=== PATIENT | male | born 1965 | race Hispanic/Latino ===

== ENCOUNTER 2017-09-15 10:19 | Emergency (ER) | payer OTHER ==
--- NOTE | 2017-09-15 13:21 | Emergency Department Report ---
Chief Complaint: Nausea/Vomiting/Diarrhea Stated Complaint: NAUSEA/VOMITING - HPI History of Present Illness: 52-year-old male with the greater than 20 year addiction to drugs comes in today stating that he would like to get help to get off taking methadone. Patient reports that he last used meth last night. Patient reports it is a severe headache and some nausea and some vomiting. He reports that he has some mild blurry vision. - Exam Vital Signs: Vital Signs 09/15/17 11:48 Temperature 97.6 F Pulse Rate 84 Blood Pressure 122/60 O2 Sat by Pulse 100 Oximetry Physical Exam: Patient's alert and oriented no acute distress. Slouched in the chair on and off sleepiness. Cardiovascular. Regular rate and rhythm Lungs clear to auscultation bilateral Abdomen soft nontender nondistended MSE screening note: Focused history and physical exam performed. Due to findings the following was ordered: Discussed with patient that we would send him over to the main ER to see if we can get him some help getting off meth. Patient verbalized understanding and very appreciative. ED Disposition for MSE Condition: Stable
[2017-09-15 16:43] LABS: Basophils # (Auto) 0.1 K/mm3 (0.0-0.1); Basophils % (Auto) 0.9 % (0.0-1.8); Eosinophils # (Auto) 0.4 K/mm3 (0.0-0.4); Eosinophils % (Auto) 6.3 % (0.0-4.3); Hematocrit 42.5 % (35.5-45.6); Hemoglobin 14.5 gm/dl (11.8-15.2); Lymphocytes # (Auto) 1.3 K/mm3 (1.2-5.4); Lymphocytes % (Auto) 22.7 % (13.4-35.0); Mean Corpuscular HGB Conc 34 % (32-34); Mean Corpuscular Hemoglobin 33 pg (28-32); Mean Corpuscular Volume 96 fl (84-94); Monocytes # (Auto) 0.6 K/mm3 (0.0-0.8); Platelet Count 196 K/mm3 (140-440); Red Blood Count 4.43 M/mm3 (3.65-5.03); Red Cell Distribution Width 14.4 % (13.2-15.2)
[2017-09-15 16:50] LABS: Bilirubin,Urine NEG (Negative); Blood,Urine SM (Negative); Color,Urine Yellow (Yellow); Mucus,Urine FEW /HPF; Protein,Urine <15 mg/dL mg/dL (Negative); Urobilinogen,Urine < 2.0 mg/dL (<2.0)
[2017-09-15 16:53] LABS: BUN/Creatinine Ratio 32; Blood Urea Nitrogen 16 mg/dL (9-20); Calcium 8.8 mg/dL (8.4-10.2); Hemolysis Index 7
[2017-09-15 16:58] LABS: Benzodiazepines Screen,Urine PRESUMPTIVE NEGATIVE; Cocaine Screen,Urine PRESUMPTIVE NEGATIVE; Methadone Screen,Urine PRESUMPTIVE NEGATIVE; Opiate Screen,Urine PRESUMPTIVE NEGATIVE
[2017-09-15] MEDS ORDERED: TYLENOL PO ONE (17:06)
[2017-09-15 17:15] LABS: Amphetamine Screen,Urine PRESUMPTIVE POSITIVE; Cannabinoid Screen,Urine PRESUMPTIVE POSITIVE
--- NOTE | 2017-09-15 18:07 | Cat Scan Report ---
FINAL REPORT EXAM: CT HEAD/BRAIN WO CON HISTORY: headache TECHNIQUE: Standard unenhanced CT of the head at 5.0 millimeter axial increments. PRIORS: None. FINDINGS: The ventricular system is normal in size and configuration. There is no evidence for parenchymal volume loss. There is no evidence for mass lesion, mass effect, midline shift, acute intracranial hemorrhage, or acute ischemia/ infarction. No evidence for acute skull fracture is seen. No abnormality in the overlying scalp soft tissues is seen. Visualized paranasal sinuses demonstrate extensive mucosal thickening throughout the bilateral ethmoid, frontal, and maxillary sinuses without air-fluid levels. IMPRESSION: Mild chronic sinusitis. No acute intracranial process noted.
--- NOTE | 2017-09-15 18:17 | Emergency Department Report ---
ED Psych HPI - General Chief Complaint: Nausea/Vomiting/Diarrhea Stated Complaint: NAUSEA/VOMITING Time Seen by Provider: 09/15/17 16:25 Source: patient Mode of arrival: Ambulatory Limitations: No Limitations - History of Present Illness Initial Comments: 52-year-old male with past medical history of drug abuse presents to the Hospital complaining of suicidal ideation, methamphetamine abuse, and headache. Patient states he wants help to stop his methadone addiction. He either snorts or smokes meth and denies IV injection. Patient last used meth last night. Complains of a headache, nausea, vomiting, blurred vision. Headache was initially severe. He states it has decreased in intensity and has blurred vision has improved. Patient states he was suicidal. Previous suicidal attempts in the past including overdoses. Patient also states he drinks alcohol but not daily and smokes marijuana - Related Data Home Medications Medication Instructions Recorded Confirmed Last Taken No Known Home Medications [No 02/28/14 09/15/17 Unknown Reported Home Medications] Allergies Allergy/AdvReac Type Severity Reaction Status Date / Time No Known Allergies Allergy Unverified 07/07/13 10:58 ED Review of Systems ROS: Stated complaint: NAUSEA/VOMITING Other details as noted in HPI Comment: All other systems reviewed and negative ED Past Medical Hx - Past Medical History Previous Medical History?: No - Surgical History Additional Surgical History: L lung-bleb - Social History Smoking Status: Current Every Day Smoker - Medications Home Medications: Home Medications Medication Instructions Recorded Confirmed Last Taken Type No Known Home Medications [No 02/28/14 09/15/17 Unknown History Reported Home Medications] ED Physical Exam - General Limitations: No Limitations - Other Other exam information: General: No limitations, patient is alert in no acute distress Head exam: Atraumatic, normocephalic Eyes exam: Normal appearance, pupils equal reactive to light, extraocular movements intact ENT: Moist mucous membrane Neck exam: Normal inspection, full range of motion, no meningismus nontender Respiratory exam: Clear to auscultation bilateral, no wheezes, rales, crackles Cardiovascular: Normal rate and rhythm, normal heart sounds Abdomen: Soft, nondistended, and nontender, with normal bowel sounds, no rebound, or guarding Extremity: Full range of motion normal inspection no deformity Back: Normal Inspection, full range of motion, no tenderness Neurologic: Alert, oriented x3, cranial nerves intact, no motor or sensory deficit Psychiatric: normal affect, normal mood Skin: Warm, dry, intact ED Course Vital Signs 09/15/17 09/15/17 09/15/17 11:48 14:52 15:05 Temperature 97.6 F 97.5 F L Pulse Rate 84 77 Respiratory 20 20 Rate Blood Pressure 122/60 Blood Pressure 115/78 [Right] O2 Sat by Pulse 100 98 98 Oximetry 09/15/17 20:10 Temperature 98.8 F Pulse Rate 78 Respiratory 18 Rate Blood Pressure Blood Pressure 109/62 [Right] O2 Sat by Pulse 99 Oximetry ED Medical Decision Making - Lab Data Result diagrams: 09/15/17 16:33 09/15/17 16:33 Lab Results 09/15/17 09/15/17 09/15/17 Range/Units 16:08 16:23 16:23 WBC (4.5-11.0) K/mm3 RBC (3.65-5.03) M/mm3 Hgb (11.8-15.2) gm/dl Hct (35.5-45.6) % MCV (84-94) fl MCH (28-32) pg MCHC (32-34) % RDW (13.2-15.2) % Plt Count (140-440) K/mm3 Lymph % (Auto) (13.4-35.0) % [place] % (Auto) (0.0-7.3) % Eos % (Auto) (0.0-4.3) % Baso % (Auto) (0.0-1.8) % Lymph # (1.2-5.4) K/mm3 [place] # (0.0-0.8) K/mm3 Eos # (0.0-0.4) K/mm3 Baso # (0.0-0.1) K/mm3 Seg Neutrophils % (40.0-70.0) % Seg Neutrophils # (1.8-7.7) K/mm3 Sodium (137-145) mmol/L Potassium (3.6-5.0) mmol/L Chloride (98-107) mmol/L Carbon Dioxide (22-30) mmol/L Anion Gap mmol/L BUN (9-20) mg/dL Creatinine (0.8-1.5) mg/dL Estimated GFR ml/min BUN/Creatinine Ratio % Glucose (75-100) mg/dL POC Glucose 161 H (70-105) Calcium (8.4-10.2) mg/dL Total Creatine Kinase (55-170) units/L Urine Color Yellow (Yellow) Urine Turbidity Clear (Clear) Urine pH 5.0 (5.0-7.0) Ur Specific [place] 1.020 (1.003-1.030) Urine Protein <15 mg/dl (Negative) mg/dL Urine Glucose (UA) Neg (Negative) mg/dL Urine Ketones 20 (Negative) mg/dL Urine Blood Sm (Negative) Urine Nitrite Neg (Negative) Urine Bilirubin Neg (Negative) Urine Urobilinogen < 2.0 (<2.0) mg/dL Ur Leukocyte Esterase Neg (Negative) Urine WBC (Auto) 2.0 (0.0-6.0) /HPF Urine RBC (Auto) 2.0 (0.0-6.0) /HPF Urine Mucus Few /HPF Salicylates (2.8-20.0) mg/dL Urine Opiates Screen Presumptive negative Urine Methadone Screen Presumptive negative Acetaminophen (10.0-30.0) ug/mL Ur Barbiturates Screen Presumptive negative Ur Phencyclidine Scrn Presumptive negative Ur Amphetamines Screen Presumptive positive U Benzodiazepines Scrn Presumptive negative Urine Cocaine Screen Presumptive negative U Marijuana (THC) Screen Presumptive positive Drugs of Abuse Note Disclamer Plasma/Serum Alcohol (0-0.07) % 09/15/17 09/15/17 09/15/17 Range/Units 16:33 16:33 16:33 WBC (4.5-11.0) K/mm3 RBC (3.65-5.03) M/mm3 Hgb (11.8-15.2) gm/dl Hct (35.5-45.6) % MCV (84-94) fl MCH (28-32) pg MCHC (32-34) % RDW (13.2-15.2) % Plt Count (140-440) K/mm3 Lymph % (Auto) (13.4-35.0) % [place] % (Auto) (0.0-7.3) % Eos % (Auto) (0.0-4.3) % Baso % (Auto) (0.0-1.8) % Lymph # (1.2-5.4) K/mm3 [place] # (0.0-0.8) K/mm3 Eos # (0.0-0.4) K/mm3 Baso # (0.0-0.1) K/mm3 Seg Neutrophils % (40.0-70.0) % Seg Neutrophils # (1.8-7.7) K/mm3 Sodium 135 L (137-145) mmol/L Potassium 4.1 (3.6-5.0) mmol/L Chloride 97.4 L (98-107) mmol/L Carbon Dioxide 27 (22-30) mmol/L Anion Gap 15 mmol/L BUN 16 (9-20) mg/dL Creatinine 0.5 L (0.8-1.5) mg/dL Estimated GFR > 60 ml/min BUN/Creatinine Ratio 32 % Glucose 169 H (75-100) mg/dL POC Glucose (70-105) Calcium 8.8 (8.4-10.2) mg/dL Total Creatine Kinase (55-170) units/L Urine Color (Yellow) Urine Turbidity (Clear) Urine pH (5.0-7.0) Ur Specific [place] (1.003-1.030) Urine Protein (Negative) mg/dL Urine Glucose (UA) (Negative) mg/dL Urine Ketones (Negative) mg/dL Urine Blood (Negative) Urine Nitrite (Negative) Urine Bilirubin (Negative) Urine Urobilinogen (<2.0) mg/dL Ur Leukocyte Esterase (Negative) Urine WBC (Auto) (0.0-6.0) /HPF Urine RBC (Auto) (0.0-6.0) /HPF Urine Mucus /HPF Salicylates < 0.3 L (2.8-20.0) mg/dL Urine Opiates Screen Urine Methadone Screen Acetaminophen < 15.0 (10.0-30.0) ug/mL Ur Barbiturates Screen Ur Phencyclidine Scrn Ur Amphetamines Screen U Benzodiazepines Scrn Urine Cocaine Screen U Marijuana (THC) Screen Drugs of Abuse Note Plasma/Serum Alcohol (0-0.07) % 09/15/17 09/15/17 09/15/17 Range/Units 16:33 16:33 16:33 WBC 5.8 (4.5-11.0) K/mm3 RBC 4.43 (3.65-5.03) M/mm3 Hgb 14.5 (11.8-15.2) gm/dl Hct 42.5 (35.5-45.6) % MCV 96 H (84-94) fl MCH 33 H (28-32) pg MCHC 34 (32-34) % RDW 14.4 (13.2-15.2) % Plt Count 196 (140-440) K/mm3 Lymph % (Auto) 22.7 (13.4-35.0) % [place] % (Auto) 10.0 H (0.0-7.3) % Eos % (Auto) 6.3 H (0.0-4.3) % Baso % (Auto) 0.9 (0.0-1.8) % Lymph # 1.3 (1.2-5.4) K/mm3 [place] # 0.6 (0.0-0.8) K/mm3 Eos # 0.4 (0.0-0.4) K/mm3 Baso # 0.1 (0.0-0.1) K/mm3 Seg Neutrophils % 60.1 (40.0-70.0) % Seg Neutrophils # 3.5 (1.8-7.7) K/mm3 Sodium (137-145) mmol/L Potassium (3.6-5.0) mmol/L Chloride (98-107) mmol/L Carbon Dioxide (22-30) mmol/L Anion Gap mmol/L BUN (9-20) mg/dL Creatinine (0.8-1.5) mg/dL Estimated GFR ml/min BUN/Creatinine Ratio % Glucose (75-100) mg/dL POC Glucose (70-105) Calcium (8.4-10.2) mg/dL Total Creatine Kinase 236 H (55-170) units/L Urine Color (Yellow) Urine Turbidity (Clear) Urine pH (5.0-7.0) Ur Specific [place] (1.003-1.030) Urine Protein (Negative) mg/dL Urine Glucose (UA) (Negative) mg/dL Urine Ketones (Negative) mg/dL Urine Blood (Negative) Urine Nitrite (Negative) Urine Bilirubin (Negative) Urine Urobilinogen (<2.0) mg/dL Ur Leukocyte Esterase (Negative) Urine WBC (Auto) (0.0-6.0) /HPF Urine RBC (Auto) (0.0-6.0) /HPF Urine Mucus /HPF Salicylates (2.8-20.0) mg/dL Urine Opiates Screen Urine Methadone Screen Acetaminophen (10.0-30.0) ug/mL Ur Barbiturates Screen Ur Phencyclidine Scrn Ur Amphetamines Screen U Benzodiazepines Scrn Urine Cocaine Screen U Marijuana (THC) Screen Drugs of Abuse Note Plasma/Serum Alcohol < 0.01 (0-0.07) % - Radiology Data Radiology results: report reviewed Read by radiologist CT head: Mild chronic sinusitis - Medical Decision Making 1013 and transfer form have been signed. pt is medically cleared for psychiatric admission and transfer - Differential Diagnosis drug abuse, headache, ICH Critical Care Time: No Critical care attestation.: If time is entered above; I have spent that time in minutes in the direct care of this critically ill patient, excluding procedure time. ED Disposition Clinical Impression: Methamphetamine abuse, Suicidal ideation, Medical clearance for psychiatric admission, Chronic sinusitis Disposition: [id number]/TX-[id number] PSY HOSP/PSY UNIT Is pt being admited?: No Does the pt Need Aspirin: No Condition: Stable Time of Disposition: 18:17 (awaiting acceptance)
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
[2017-09-16] MEDS: RisperDAL PO SCH (23:30)
--- NOTE | 2017-09-17 10:53 | Progress Note ---
Subjective - Reason for Consult Consult date: 09/17/17 Reason for consult: Psychiatry Follow-up - Chief Complaint Chief complaint: "I need help" 52 year old WM presents to [facility] to detox from "meth". Today the patient is cooperative during the assessment. He is adamant that all his issues "stem" from a bad relationship with his girlfriend. He could not explain what happened at home, other than stating, "I need to stop using meth." He was pacing throughout the interview and acknowledged hearing voices "sometimes," but deny them now. He would not confirm or deny feeling scared when asked. He denies SI/HI's and AVH's. He denies any side effects of his medications. He stated that he takes Risperdal and Cogentin. Mental Status Exam - Vital signs Last Vital Signs Temp 98.7 F 09/16/17 23:32 Pulse 89 09/16/17 23:32 Resp 17 09/16/17 23:32 BP 106/69 09/16/17 23:32 Pulse Ox 99 09/16/17 23:32 - Exam Narrative exam: MSE: Appearance: cooperative Behavior: regular eye contact Speech: regular rate and tone Mood: irritable Affect: congruent to mood Thought Process: circumstantial Thought Content: denies SI/HI's and AVH's, disorganized, paranoia Motor Activity: sitting up in bed Cognition: A/O x3 Insight: poor Judgment: variable Assessment and Plan Impression: Unspecified Psychosis. Substance Use DO (amphetamines). Today the patient is cooperative during the assessment. DDx: R/O Schizophrenia, R/O Substance Induced Psychosis Recommendation/Plan: Continue 1013 with placement to inpatient psy services. Continue Risperdal 1 mg PO HS for psychosis and start Cogentin 0.5 mg PO HS for EPS prevention (home medication). Discussed possible metabolic side effects of Risperdal with patient.
[2017-09-17] MEDS ORDERED: COGENTIN PO SCH (22:00)
[2017-09-17] MEDS: RisperDAL PO SCH (22:03)
[2017-09-18] MEDS ORDERED: TYLENOL ONE (06:12)
[2017-09-18] MEDS ORDERED: TYLENOL PO ONE (06:15)
--- NOTE | 2017-09-18 09:46 | Progress Note ---
Subjective - Reason for Consult Consult date: 09/18/17 Reason for consult: Psychiatry Follow-up - Chief Complaint Chief complaint: "I just want to stop using meth" 52 year old WM presents to [facility] to detox from "meth". Today the patient is calm and cooperative during the assessment. He is adamant that he will do his best to stop using "meth." He denies paranoia, SI/HI's, and AVH's. This is the patient's first day denying paranoia. He denies any side effects of his medications. He stated being homeless at this time. Mental Status Exam - Vital signs Last Vital Signs Temp 98.6 F 09/17/17 11:00 Pulse 72 09/17/17 11:00 Resp 18 09/18/17 06:18 BP 96/64 09/17/17 11:00 Pulse Ox 100 09/17/17 11:00 - Exam Narrative exam: MSE: Appearance: calm, cooperative Behavior: regular eye contact Speech: regular rate and tone Mood: "better" Affect: congruent to mood Thought Process: circumstantial Thought Content: denies SI/HI's and AVH's Motor Activity: sitting up in bed Cognition: A/O x3 Insight: fair Judgment: fair Assessment and Plan Impression: Unspecified Psychosis. Substance Use DO (amphetamines). Today the patient is cooperative during the assessment. DDx: R/O Schizophrenia, R/O Substance Induced Psychosis Recommendation/Plan: Evaluate 1013 in 24 hours to determine proper dispo. Continue Risperdal 1 mg PO HS for psychosis and start Cogentin 0.5 mg PO HS for EPS prevention (home medication). Discussed possible metabolic side effects of Risperdal with patient. Student Services Rep involvement when discharged, the patient is homeless.
[2017-09-18 20:37] VITALS: BP 107/69
== END 2017-09-18 20:40 ==
LOC: EEVIPCON 10:19 → ED 10:19
DX: F29 Unspecified psychosis not due to a substance or known physiological condition (principal); F15.10 Other stimulant abuse, uncomplicated; J32.9 Chronic sinusitis, unspecified; F12.10 Cannabis abuse, uncomplicated; F17.200 Nicotine dependence, unspecified, uncomplicated; Z79.899 Other long term (current) drug therapy
CPT/HCPCS: 36415; 70450; 80048; 80307; 81001; 82550; 82962; 85025; 99285; G0480; 80320

== ENCOUNTER 2018-10-31 17:12 | Emergency (ER) | payer OTHER ==
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
[2018-10-31] MEDS ORDERED: BOOSTRIX IM ONE (17:32)
[2018-10-31] MEDS ORDERED: NACL 0.9% IR ONE ×3 (18:17→19:35)
[2018-10-31] MEDS ORDERED: NACL 0.9% 500 ML IR ONE (18:18)
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
[2018-10-31 18:36] LABS: Hematocrit 39.4 % (35.5-45.6); Hemoglobin 13.4 gm/dl (11.8-15.2); Mean Corpuscular HGB Conc 34 % (32-34); Mean Corpuscular Volume 95 fl (84-94); Platelet Count 273 K/mm3 (140-440); Red Blood Count 4.17 M/mm3 (3.65-5.03); Red Cell Distribution Width 13.8 % (13.2-15.2)
[2018-10-31 18:44] LABS: Basophils # (Auto) 0.1 K/mm3 (0.0-0.1); Eosinophils # (Auto) 0.6 K/mm3 (0.0-0.4); Eosinophils % (Auto) 8.8 % (0.0-4.3); Lymphocytes # (Auto) 1.8 K/mm3 (1.2-5.4); Lymphocytes % (Auto) 25.3 % (13.4-35.0); Monocytes # (Auto) 0.8 K/mm3 (0.0-0.8); Monocytes % (Auto) 11.5 % (0.0-7.3)
[2018-10-31] MEDS ORDERED: DILAUDID IM ONE (18:47)
[2018-10-31] MEDS ORDERED: ZOFRAN ODT PO ONE (18:47)
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
[2018-10-31] MEDS ORDERED: XYLOCAINE 1%/ EPI 1:100,000 INFILTRATI NR (19:00)
[2018-10-31 19:01] LABS: Alanine Aminotransferase 11 units/L (7-56); Albumin 3.3 g/dL (3.9-5); BUN/Creatinine Ratio 22; Blood Urea Nitrogen 13 mg/dL (9-20); Calcium 8.1 mg/dL (8.4-10.2); Hemolysis Index 9
[2018-10-31] MEDS ORDERED: KEFLEX PO ONE (19:35)
[2018-10-31 21:17] LABS: Bilirubin,Urine NEG (Negative); Blood,Urine NEG (Negative); Color,Urine Yellow (Yellow); Mucus,Urine FEW /HPF; Protein,Urine <15 mg/dL mg/dL (Negative)
[2018-10-31 21:26] LABS: Benzodiazepines Screen,Urine PRESUMPTIVE NEGATIVE; Cocaine Screen,Urine PRESUMPTIVE NEGATIVE; Methadone Screen,Urine PRESUMPTIVE NEGATIVE; Opiate Screen,Urine PRESUMPTIVE NEGATIVE
[2018-10-31 21:42] LABS: Amphetamine Screen,Urine PRESUMPTIVE POSITIVE; Cannabinoid Screen,Urine PRESUMPTIVE POSITIVE
[2018-11-01] MEDS: KEFLEX PO SCH ×3 (02:59→15:00)
[2018-11-01] MEDS ORDERED: ULTRAM PO PRN (11:00)
--- NOTE | 2018-11-01 12:37 | Consultation ---
History of Present Illness - Reason for Consult Consult date: 11/01/18 Reason for consult: Mental Health Evaluation Requesting physician: ALEXANDR BEAL - Chief Complaint Chief complaint: "I need to get my life together" - History of Present Psychiatric Illness 53-year-old white male presented to the ER with a lacerated right hand and wrist. Psychiatry was consulted because the patient endorsed SI's. Today the patient os calm and cooperative during the assessment. He stated that he has a lhx of substance abuse and depression. He stated that he started using drugs 30 years ago. He stated that he was "clean" in the past, but would always relapse. He stated that he took Paxil for depression in the past. He stated that his "unstable life" along with his substance abuse have brought on SI's. He denies a suicide plan when asked. He rate hid depression 7/10, with 10 being the worse. He denies HI's and AVH's. He denies a poor appetite, but acknowledged erratic sleep. He denies alcohol consumption (etoh). Medications and Allergies Allergies Allergy/AdvReac Type Severity Reaction Status Date / Time No Known Allergies Allergy Unverified 07/07/13 10:58 Home Medications Medication Instructions Recorded Confirmed Last Taken Type No Known Home Medications [No 02/28/14 09/15/17 Unknown History Reported Home Medications] Active Meds: Active Medications Cephalexin (Keflex) 500 mg PO Q6HR KELSEY Stop: 11/08/18 00:00 Last Admin: 11/01/18 09:00 Dose: 500 mg Documented by: Tramadol HCl (Ultram) 50 mg PO Q8H PRN PRN Reason: Pain , Severe (7-10) Past psychiatric history - Past Medical History Past Medical History: other (pneumothorax) Past Surgical History: No surgical history - past Psychiatric treatment and history psychiatric treatment history: Hx of depression and substance abuse. Denies a fam psy hx. - Social History Social history: other (Homeless) Mental Status Exam - Vital signs Last Vital Signs Temp 97.4 F L 11/01/18 08:10 Pulse 60 11/01/18 07:00 Resp 18 11/01/18 07:30 BP 109/82 11/01/18 07:00 Pulse Ox 93 11/01/18 07:00 - Exam Narrative exam: MSE: Appearance: calm, cooperative Behavior: regular eye contact Speech: regular rate and tone Mood: "depressed" Affect: congruent to mood Thought Process: linear Thought Content: denies HI's and AVH's Motor Activity: sitting up in bed Cognition: A/O x 3 Insight: fair Judgment: poor Results Result Diagrams: 10/31/18 17:46 10/31/18 17:46 Abnormal lab results 10/31/18 10/31/18 10/31/18 Range/Units 17:46 17:46 17:46 MCV 95 H (84-94) fl [place] % (Auto) 11.5 H (0.0-7.3) % Eos % (Auto) 8.8 H (0.0-4.3) % Eos # 0.6 H (0.0-0.4) K/mm3 Creatinine 0.6 L (0.8-1.5) mg/dL Calcium 8.1 L (8.4-10.2) mg/dL Albumin 3.3 L (3.9-5) g/dL Salicylates < 0.3 L (2.8-20.0) mg/dL Acetaminophen (10.0-30.0) ug/mL 10/31/18 Range/Units 17:46 MCV (84-94) fl [place] % (Auto) (0.0-7.3) % Eos % (Auto) (0.0-4.3) % Eos # (0.0-0.4) K/mm3 Creatinine (0.8-1.5) mg/dL Calcium (8.4-10.2) mg/dL Albumin (3.9-5) g/dL Salicylates (2.8-20.0) mg/dL Acetaminophen < 5.0 L (10.0-30.0) ug/mL All other labs normal. Assessment and Plan Assessment and plan: Impression: MDD, severe type. Substance Use DO (amphetamines). Cannabis Use DO. Today the patient is a calm and cooperative during the assessment. The patient has passive SI's without a plan. DDx: Substance Induced Mood DO Recommendation/Plan: Continue 1013 and start Paxil 10 mg PO daily for depression and Benadryl 25 mg Po HS for sleep. Discussed possible suicidality/medication induced elvia with the patient reference Paxil, he verbalized understanding. Discussed the importance to abstain from using recreational drugs with the patient, he verbalized understanding. Dispo: The patient was referred to inpatient psy services. Will staff with Dr. Zachary Hartman.
[2018-11-01] MEDS: PAXIL PO SCH (13:31)
[2018-11-02] MEDS: BENADRYL PO SCH ×2 (02:17→02:29)
[2018-11-02] MEDS: KEFLEX PO SCH ×4 (02:17→13:34)
[2018-11-02 04:08] VITALS: BP 126/79
--- NOTE | 2018-11-02 10:36 | Progress Note ---
Subjective - Reason for Consult Consult date: 11/02/18 Reason for consult: Psychiatry Follow-up - Chief Complaint Chief complaint: "It's not easy" 53-year-old white male presented to the ER with a lacerated right hand and wrist. Psychiatry was consulted because the patient endorsed SI's. Today the patient is calm and cooperative during the assessment. He continue to feel hopeless and sad about his situation, He stated, "My life isn't the best." He would not confirm or deny SI's. He denies HI's and AVH's. He denies any side effects of his medications. Mental Status Exam - Vital signs Last Vital Signs Temp 97.4 F L 11/02/18 04:07 Pulse 64 11/02/18 04:07 Resp 16 11/02/18 04:07 BP 126/79 11/02/18 04:07 Pulse Ox 98 11/02/18 04:07 - Exam Narrative exam: MSE: Appearance: calm, cooperative Behavior: regular eye contact Speech: regular rate and tone Mood: "still depressed" Affect: flat Thought Process: circumstantial Thought Content: denies HI's and AVH's Motor Activity: sitting up in bed Cognition: A/O x 3 Insight: fair Judgment: poor Assessment and Plan Impression: MDD, severe type. Substance Use DO (amphetamines). Cannabis Use DO. Today the patient is a calm and cooperative during the assessment. DDx: Substance Induced Mood DO Recommendation/Plan: Continue 1013, Paxil 10 mg PO daily for depression, and Benadryl 25 mg Po HS for sleep. Discussed possible suicidality/medication induced elvia with the patient reference Paxil, he verbalized understanding. Discussed the importance to abstain from using recreational drugs with the patient, he verbalized understanding. Dispo: The patient was accepted at [facility] for in patient psy services. Will staff with Dr. Zachary Hartman.
[2018-11-02] MEDS: PAXIL PO SCH (13:35)
== END 2018-11-02 14:30 ==
LOC: ED 17:12 → EEVIPCON 17:12 → ED 11-02 14:30
DX: S61.411A Laceration without foreign body of right hand, initial encounter (principal); F15.10 Other stimulant abuse, uncomplicated; F10.10 Alcohol abuse, uncomplicated; F32.9 Major depressive disorder, single episode, unspecified; F17.200 Nicotine dependence, unspecified, uncomplicated; F14.10 Cocaine abuse, uncomplicated; F12.10 Cannabis abuse, uncomplicated; X78.0XXA Intentional self-harm by sharp glass, initial encounter; Y93.89 Activity, other specified; Y92.89 Other specified places as the place of occurrence of the external cause; Y99.8 Other external cause status
CPT/HCPCS: 36415; 73110; 73130; 80053; 80307; 81001; 83735; 85025; 90471; 90715; 96372; 99285; G0480; J1170; 80320; Q0162

== ENCOUNTER 2020-07-23 14:16 | Emergency (ER) | payer SELFPAY ==
--- NOTE | 2020-07-23 16:31 | Event Note ---
ED Screening Note ED Screening Note: bilateral flank pain for a week no fall or injury +dysuria no n/v/d no fever no numbness, weakness, bowel or bladder incontinence, saddle numbness no penile discharge, no pain or swelling in the testicles pt is a heavy drinker, last drink early this morning, he has mild tremors but no tachycardia or hypertension This initial assessment/diagnostic orders/clinical plan/treatment(s) is/are subject to change based on patients health status, clinical progression and re- assessment by fellow clinical providers in the ED. Further treatment and workup at subsequent clinical providers discretion. Patient/guardian urged not to elope from the ED as their condition may be serious if not clinically assessed and managed. Initial orders include: labs, UDS, UA, CT abd pelvis without contrast
--- NOTE | 2020-07-23 17:04 | Cat Scan Report ---
CT ABDOMEN AND PELVIS WITHOUT IV CONTRAST INDICATION: bilateral flank pain, dysuria. COMPARISON: None available. TECHNIQUE: All CT scans at this facility use dose modulation, automated exposure control, iterative reconstructi on or weight based dosing, when appropriate, to reduce radiation dose to as low as reasonably achieva ble. FINDINGS: Lung Bases: No significant abnormality. Skeletal System: No acute abnormality. ABDOMEN: Liver: No significant abnormality. Gallbladder: No significant abnormality. Bile Ducts: No significant abnormality. Pancreas: No significant abnormality. Spleen: No significant abnormality. Adrenals: No significant abnormality. Right Kidney: There are a few punctate nonobstructing calyceal stones. No hydronephrosis. Left Kidney: There are couple punctate nonobstructing calyceal stones in the lower pole. No hydroneph rosis. Upper GI tract: No significant abnormality. Lymph Nodes: No significant adenopathy. Aorta: No significant abnormality. Additional Findings: No significant abnormality. PELVIS: Colon: No acute abnormality. Urinary Bladder and Distal Ureters: No significant abnormality. Appendix: No significant abnormality. Lymph Nodes: No significant adenopathy. Additional Findings: None. IMPRESSION: 1. Within the limitations of non contrast technique, no acute process in the abdomen or pelvis. 2. There is minimal bilateral nephrolithiasis. No hydronephrosis. Signer Name: Darrell Nieves MD Signed: 07/23/2020 5:00 PM Workstation Name: [id number]
[2020-07-23 17:11] LABS: Basophils # (Auto) 0.1 K/mm3 (0.0-0.1); Basophils % (Auto) 0.9 % (0.0-1.8); Eosinophils # (Auto) 0.4 K/mm3 (0.0-0.4); Eosinophils % (Auto) 5.9 % (0.0-4.3); Hematocrit 37.4 % (35.5-45.6); Hemoglobin 12.6 gm/dl (11.8-15.2); Lymphocytes # (Auto) 1.3 K/mm3 (1.2-5.4); Lymphocytes % (Auto) 20.7 % (13.4-35.0); Mean Corpuscular HGB Conc 34 % (32-34); Mean Corpuscular Volume 98 fl (84-94); Monocytes # (Auto) 0.7 K/mm3 (0.0-0.8); Platelet Count 179 K/mm3 (140-440); Red Blood Count 3.83 M/mm3 (3.65-5.03); Red Cell Distribution Width 13.3 % (13.2-15.2)
[2020-07-23 17:27] LABS: Alanine Aminotransferase 52 units/L (7-56); Blood Urea Nitrogen 18 mg/dL (9-20); Calcium 8.8 mg/dL (8.4-10.2); Hemolysis Index 3
[2020-07-23 17:29] LABS: BUN/Creatinine Ratio 30
[2020-07-23 19:25] LABS: Bacteria,Urine 1+ /HPF (Negative); Bilirubin,Urine NEG (Negative); Blood,Urine NEG (Negative); Color,Urine Yellow (Yellow); Mucus,Urine FEW /HPF; Protein,Urine <15 mg/dL mg/dL (Negative)
[2020-07-23 19:39] LABS: Amphetamine Screen,Urine PRESUMPTIVE POSITIVE; Benzodiazepines Screen,Urine PRESUMPTIVE NEGATIVE; Cannabinoid Screen,Urine PRESUMPTIVE NEGATIVE; Cocaine Screen,Urine PRESUMPTIVE NEGATIVE; Methadone Screen,Urine PRESUMPTIVE NEGATIVE; Opiate Screen,Urine PRESUMPTIVE NEGATIVE
[2020-07-23] MEDS ORDERED: KETOROLAC 30 MG/1 ML INJ IM ONE (21:03)
--- NOTE | 2020-07-23 21:09 | Emergency Department Report ---
<ENRRIQUE CHARLES - Last Filed: 07/24/20 04:31> ED General Adult HPI - General Chief complaint: Back Pain/Injury Stated complaint: BACK PAIN Time Seen by Provider: 07/23/20 16:28 Source: patient Mode of arrival: Ambulatory Limitations: No Limitations - History of Present Illness Initial comments: 55 yo M pt presents with complaints of low back pain x 2 days. Pt denies any injury to his back or recent heavy lifting. He is a chronic alcoholic, last drink earlier today per pt. He denies any numbness/tingling/weakness in his legs, saddle parasthesias, hx of cancer, abdominal pain, or hematuria/hematochezia. No loss of bladder/bowel control, however pt states he is having some trouble starting to urinate. +Dysuria. During ED stay, pt admitted to nurse that he is having thoughts of suicide for the past few days with a plan to walk into traffic. He denies hallucinations or HI. He states hx of attempted suicides in the past. Severity scale (0 -10): 10 - Related Data Home Medications Medication Instructions Recorded Confirmed Last Taken No Known Home Medications [No 07/24/20 07/24/20 Unknown Reported Home Medications] Allergies Allergy/AdvReac Type Severity Reaction Status Date / Time No Known Allergies Allergy Unverified 07/07/13 10:58 ED Review of Systems Constitutional: denies: chills, diaphoresis, fever, malaise ENT: denies: throat pain Respiratory: denies: cough, shortness of breath Cardiovascular: denies: chest pain Endocrine: denies: excessive sweating Gastrointestinal: denies: abdominal pain, nausea, vomiting, diarrhea, con stipation, hematemesis, melena, hematochezia Musculoskeletal: back pain. denies: joint swelling, arthralgia Skin: denies: lesions, change in color Neurological: denies: headache, weakness, numbness, paresthesias, abnormal gait Hematological/Lymphatic: denies: easy bleeding, easy bruising, swollen glands ED Past Medical Hx - Past Medical History Previous Medical History?: No Hx Psychiatric Treatment: No Additional medical history: Hx of pneumothorax - Surgical History Past Surgical History?: Yes Additional Surgical History: L lung-bleb - Social History Smoking Status: Current Every Day Smoker Substance Use Type: Alcohol, Cocaine, Marijuana, Non Opiate Pain, Prescribed, Tranquilizers, Methamphetamines - Medications Home Medications: Home Medications Medication Instructions Recorded Confirmed Last Taken Type No Known Home Medications [No 07/24/20 07/24/20 Unknown History Reported Home Medications] ED Physical Exam - General Limitations: No Limitations General appearance: alert, in no apparent distress - Head Head exam: Present: atraumatic, normocephalic - Eye Eye exam: Present: normal appearance. Absent: scleral icterus, conjunctival injection - ENT ENT exam: Present: mucous membranes moist - Neck Neck exam: Present: normal inspection, full ROM - Respiratory Respiratory exam: Present: normal lung sounds bilaterally. Absent: respiratory distress - Cardiovascular Cardiovascular Exam: Present: regular rate, normal rhythm - GI/Abdominal GI/Abdominal exam: Present: soft, normal bowel sounds. Absent: distended, tenderness, guarding, rebound, rigid - Extremities Exam Extremities exam: Present: full ROM - Back Exam Back exam: Present: full ROM - Neurological Exam Neurological exam: Present: alert, oriented X3, normal gait. Absent: motor sensory deficit - Expanded Neurological Exam Expanded Sensory exam: Lower Extremity Light Touch: Normal Motor strength exam: RUE: 5, LUE: 5, RLE: 5, LLE: 5 - Psychiatric Psychiatric exam: Present: normal affect, normal mood - Skin Skin exam: Present: warm, dry, intact, normal color. Absent: rash ED Medical Decision Making - Lab Data Result diagrams: 07/23/20 16:53 07/23/20 16:53 - Radiology Data Radiology results: report reviewed Procedure(s): CT abdomen pelvis wo con Accession Number(s): [id number] cc: JASE CAZARES CT ABDOMEN AND PELVIS WITHOUT IV CONTRAST INDICATION: bilateral flank pain, dysuria. COMPARISON: None available. TECHNIQUE: All CT scans at this facility use dose modulation, automated exposure control, iterative reconstruction or weight based dosing, when appropriate, to reduce radiation dose to as low as reasonably achievable. FINDINGS: Lung Bases: No significant abnormality. Skeletal System: No acute abnormality. ABDOMEN: Liver: No significant abnormality. Gallbladder: No significant abnormality. Bile Ducts: No significant abnormality. Pancreas: No significant abnormality. Spleen: No significant abnormality. Adrenals: No significant abnormality. Right Kidney: There are a few punctate nonobstructing calyceal stones. No hydronephrosis. Left Kidney: There are couple punctate nonobstructing calyceal stones in the lower pole. No hydronephrosis. Upper GI tract: No significant abnormality. Lymph Nodes: No significant adenopathy. Aorta: No significant abnormality. Additional Findings: No significant abnormality. PELVIS: Colon: No acute abnormality. Urinary Bladder and Distal Ureters: No significant abnormality. Appendix: No significant abnormality. Lymph Nodes: No significant adenopathy. Additional Findings: None. IMPRESSION: 1. Within the limitations of non contrast technique, no acute process in the abdomen or pelvis. 2. There is minimal bilateral nephrolithiasis. No hydronephrosis. - Medical Decision Making 55 yo M pt presents with complaints of low back pain x 2 days. Pt denies any injury to his back or recent heavy lifting. He is a chronic alcoholic, last drink earlier today per pt. He denies any numbness/tingling/weakness in his legs, saddle parasthesias, hx of cancer, abdominal pain, or hematuria/hematochezia. No loss of bladder/bowel control, however pt states he is having some trouble starting to urinate. +Dysuria. During ED stay, pt admitted to nurse that he is having thoughts of suicide for the past few days with a plan to walk into traffic. He denies hallucinations or HI. He states hx of attempted suicides in the past. No acute abnormalities noted Ct abdomen. No cauda equina noted on CT lumbar. Pt states pain has significantly improved with IM toradol. 1013 signed. Charge nurse notified-pt to be placed in hold room for mental health eval. Dehydration noted with CK of about 1300, labs are otherwise wnl. +amphetamines and THC noted on drug screen. Blood alcohol level is 0 and no tremors are observed during my examination, however tremors were observed by the triage nurse and screening provider.. Pt given dose of ativan for tremors and DT prevention. He denies any prior hx of DTs or withdrawal seizures. Patient is well-appearing. Tylenol and salicylate levels are normal. Mental health exam pending. He is medically clear at this time for mental health disposition ED Disposition Clinical Impression: Suicidal ideation, Depression, Alcohol abuse, Tobacco abuse Acute low back pain Qualifiers: Back pain laterality: midline Sciatica presence: without sciatica Qualified Code(s): M54.5 - Low back pain Disposition: TO HOME OR SELFCARE Condition: Stable Instructions: Major Depressive Disorder, Adult <DEL CASTILLO,FLAVIA - Last Filed: 07/27/20 09:53> ED Review of Systems ROS: Stated complaint: BACK PAIN Other details as noted in HPI ED Course Vital Signs 07/23/20 07/23/20 07/24/20 16:27 21:57 02:48 Temperature 97.7 F 98 F Pulse Rate 66 78 Respiratory 18 22 16 Rate Blood Pressure 112/70 100/67 [Right] O2 Sat by Pulse 97 98 Oximetry 07/24/20 07/24/20 07/24/20 07:30 07:34 07:36 Temperature 98.1 F Pulse Rate 70 Respiratory 16 16 16 Rate Blood Pressure 98/54 [Right] O2 Sat by Pulse 97 97 97 Oximetry 07/24/20 07/24/20 07/24/20 07:38 13:33 20:50 Temperature 97.9 F 97.9 F Pulse Rate 91 H 64 69 Respiratory 20 18 18 Rate Blood Pressure 97/54 91/56 101/57 [Right] O2 Sat by Pulse 97 97 95 Oximetry 07/25/20 07/25/20 07/25/20 02:25 08:21 18:28 Temperature 97.8 F 98.1 F 98.1 F Pulse Rate 67 83 83 Respiratory 18 18 17 Rate Blood Pressure 114/59 104/59 102/65 [Right] O2 Sat by Pulse 96 97 98 Oximetry 07/26/20 07/26/20 07/26/20 08:34 17:21 19:40 Temperature 97.2 F L 98.1 F Pulse Rate 74 82 Respiratory 18 19 18 Rate Blood Pressure 102/68 113/62 [Right] O2 Sat by Pulse 100 98 98 Oximetry 07/26/20 07/27/20 20:29 02:00 Temperature 98.4 F 98.9 F Pulse Rate 82 82 Respiratory 18 18 Rate Blood Pressure 111/66 117/60 [Right] O2 Sat by Pulse 98 99 Oximetry ED Medical Decision Making - Lab Data Result diagrams: 07/23/20 16:53 07/23/20 16:53 - Medical Decision Making I was informed by nursing staff member that patient was cleared to be discharged by our psychiatric team. I reviewed the diagnostics obtained. I reviewed patient's vital signs. My colleague appropriately medically cleared the patient. I provided discharge order. Patient has had stable vital signs throughout his stay over the past 91 hours. Critical care attestation.: If time is entered above; I have spent that time in minutes in the direct care of this critically ill patient, excluding procedure time. ED Disposition Is pt being admited?: No Does the pt Need Aspirin: No
--- NOTE | 2020-07-23 22:04 | Cat Scan Report ---
CT lumbar spine wo con INDICATION / CLINICAL INFORMATION: 55 years Male; low back pain with difficulty urinating. TECHNIQUE: Axial CT images of the lumbar spine were obtained. Sagittal and coronal reformatted images were prod uced. All CT scans at this location are performed using CT dose reduction for ALARA by means of autom ated exposure control. COMPARISON: None available. FINDINGS: POST-SURGICAL CHANGES: None. ALIGNMENT: Straightening of the lumbar spine noted. VERTEBRAE: No signs of fracture. Vertebral bodies are grossly normal in height throughout. Mild facet hypertrophy seen at various levels. INTERVERTEBRAL DISCS: Mild disc disease seen at various levels. Most marked findings are at L4-5 or t he is a posterocentral disc protrusion. Mild to moderate canal narrowing seen. Moderate foraminal marta rowing is seen bilaterally from spondylosis with encroachment upon the L4 nerves. No impingement appr eciated. At L3-4, there is mild disc bulge. Foraminal disc disease is seen on the right which encroaches upon the exiting right L3 nerve, along with spondylosis. There is no definitive impingement seen. At L5-S1, there is moderate osseous foraminal narrowing on the right from spondylosis which encroache s upon and flattens right L5 nerve-findings appear to be on a chronic basis. Similar findings noted o n the left. L2-3, there is mild, diffuse disc bulge. PARASPINAL SOFT TISSUES: No significant abnormality. ADDITIONAL FINDINGS: Punctate nephrolithiasis seen on the left. IMPRESSION: 1. No signs of acute bony trauma to the lumbar spine. 2. Degenerative changes of the lumbar spine as described above. Most marked findings may be at L5-S1, followed by L4-5 and L3-4. Signer Name: Tai Cruz MD, III Signed: 07/23/2020 9:59 PM Workstation Name: [id number]
[2020-07-23] MEDS ORDERED: LORazepam 1 MG TAB PO ONE (22:27)
[2020-07-24] MEDS ORDERED: LORazepam 1 MG TAB PO PRN (04:30)
--- NOTE | 2020-07-24 09:10 | Consultation ---
History of Present Illness - Reason for Consult Consult date: 07/24/20 Reason for consult: SI - History of Present Psychiatric Illness Per ER note: "55 yo M pt presents with complaints of low back pain x 2 days. Pt denies any injury to his back or recent heavy lifting. He is a chronic alcoholic, last drink earlier today per pt. He denies any nu mbness/tingling/weakness in his legs, saddle parasthesias, hx of cancer, abdominal pain, or hematuria/hematochezia. No loss of bladder/bowel control, however pt states he is having some trouble starting to urinate. +Dysuria. During ED stay, pt admitted to nurse that he is having thoughts of suicide for the past few days with a plan to walk into traffic. He denies hallucinations or HI. He states hx of attempted suicides in the past." During my interview with 55y/o Romario Hernandez, he is lying in bed awake. He is a/o x 3. The patient is withdrawn and verbalizes needing help. He says he initially came to the hospital for back pain. The patient says he had just gotten [facility] of [facility] and has nowhere to go. He says "ma'am, I need help. I have no support system. I have no ID, and no certificate and I am homeless." The patient also verbalizes methamphetamine use and states "I got a problem. But I don't like to do it, I just don't know what to do about it." Although the patient john es SI/HI at present, he states "I initially told them I was suicidal because I just don't know what I will do If I go back out there." He says, "but I'm not at the moment laying here." He denies hallucinations of any kind. PAST PSYCHIATRIC HISTORY Diagnoses: Depression Suicide attempts or Self-harm behavior: yes Prior psychiatric hospitalizations: Yes Substance Abuse history: Methamphetamine Previous psychiatric medications tried: Denies Outpatient treatment: No PAST MEDICAL HISTORY: None reported Family Psychiatric History: None reported or documented SOCIAL HISTORY Marital Status: Single Living Arrangements: homeless Employment Status: unemployed Access to guns/weapons: Denies Education: 11th History of Abuse: Denies Legal History: Yes EVIEW OF SYSTEMS Constitutional: Negative for weight loss ENT: Negative for stridor Respiratory: Negative for cough or hemoptysis All other systems reviewed and are negative MENTAL STATUS EXAMINATION General Appearance and Behavior: Age appropriate, wearing appropriate clothes, calm and cooperative, polite, withdrawn Mood: "down" Affect and affective range: congruent with mood Thought Process: goal oriented Thought Content: Denies Speech: Normal volume, Regular rate and rhythm Suicidal Ideation: Possibly passive Homicidal Ideation: Denies Hallucinations: Denies Delusions: None elicited Impulse Control: Normal Insight and Judgment: Limited Memory/Cognition: Normal Attention: Normal Orientation: Alert, oriented Assessment (1) Methamphetamine Dependence (2) Noncompliance with other medical treatments and regimens (Z01.10) Plan The patient will be treated and monitored overnight. He could possible have some passive thoughts of suicide and does appear guarded. Will get came tire center manager to consult with patient and assist him. virtual classroom manager consult Zoloft 25mg po daily Trazodone 50mg po qhs Depakote DR 125mg po BID Sitter: Defer to primary Medical: Per primary Disposition: Will treat and monitor overnight and follow up with patient tomorrow after piano case maker sees him. Disposition dependent on how the patient progresses over night. Will follow. Thank you for this consult. Case staffed with Dr. Marquez Medications and Allergies Allergies Allergy/AdvReac Type Severity Reaction Status Date / Time No Known Allergies Allergy Unverified 07/07/13 10:58 Active Meds: Active Medications Lorazepam (Lorazepam 1 Mg Tab) 1 mg PO ONCE PRN PRN Reason: Alcohol Withdrawal Mental Status Exam - Vital signs Last Vital Signs Temp 98.1 F 07/24/20 07:30 Pulse 91 H 07/24/20 07:38 Resp 20 07/24/20 07:38 BP 97/54 07/24/20 07:38 Pulse Ox 97 07/24/20 07:38 Results Result Diagrams: 07/23/20 16:53 07/23/20 16:53 Abnormal lab results 07/23/20 07/23/20 07/23/20 Range/Units 16:53 16:53 22:38 MCV 98 H (84-94) fl MCH 33 H (28-32) pg Branch % (Auto) 11.0 H (0.0-7.3) % Eos % (Auto) 5.9 H (0.0-4.3) % Carbon Dioxide 33 H (22-30) mmol/L Creatinine 0.6 L (0.8-1.3) mg/dL AST 60 H (5-40) units/L Total Creatine Kinase 1341 H (55-170) units/L Salicylates < 0.3 L (2.8-20.0) mg/dL Acetaminophen (10.0-30.0) ug/mL 07/23/20 Range/Units 22:38 MCV (84-94) fl MCH (28-32) pg Branch % (Auto) (0.0-7.3) % Eos % (Auto) (0.0-4.3) % Carbon Dioxide (22-30) mmol/L Creatinine (0.8-1.3) mg/dL AST (5-40) units/L Total Creatine Kinase (55-170) units/L Salicylates (2.8-20.0) mg/dL Acetaminophen 5.0 L (10.0-30.0) ug/mL All other labs normal.
[2020-07-24] MEDS: DIVALPROEX DR 125 MG TAB PO SCH ×2 (09:52→22:12)
[2020-07-24] MEDS: SERTRALINE 25 MG TAB PO SCH (09:52)
[2020-07-24] MEDS: traZODone 50 MG TAB PO SCH (22:13)
--- NOTE | 2020-07-25 09:28 | Progress Note ---
Subjective - Reason for Consult Consult date: 07/25/20 Reason for consult: SI - Chief Complaint Chief complaint: During my interview with the patient he is lying in bed. He is guarded. He is withdrawn. He is polite, and apologizes to me for coming across as irritable. The patient says "I'm not doing well." He says "my back hurts." I asked the patient about his social economist meeting. He replies "she's trying to help me." He denies hallucinations of any kind. The patient does verbalizes suicidal ideation. But this seems to due to the fact that he has nowhere to go and no social support. He says "yes I am," when asked. When asking the patient was his suicidal thoughts because of his situation. He replied "yes." He says "I need some where to go. I need help with a lot of stuff and don't know what to do." REVIEW OF SYSTEMS Constitutional: Negative for weight loss ENT: Negative for stridor Respiratory: Negative for cough or hemoptysis All other systems reviewed and are negative MENTAL STATUS EXAMINATION General Appearance and Behavior: Age appropriate, wearing appropriate clothes, calm and cooperative, polite, withdrawn Mood: "down" Affect and affective range: congruent with mood Thought Process: goal oriented Thought Content: Denies Speech: Normal volume, Regular rate and rhythm Suicidal Ideation: Possibly passive Homicidal Ideation: Denies Hallucinations: Denies Delusions: None elicited Impulse Control: Normal Insight and Judgment: Limited Memory/Cognition: Normal Attention: Normal Orientation: Alert, oriented Assessment (1) Methamphetamine Dependence (2) Noncompliance with other medical treatments and regimens (Z01.10) Plan The pet care worker has spoken with the patient and is waiting to hear back from shelters with a bed. senior business manager consult Zoloft 25mg po daily Trazodone 50mg po qhs Depakote DR 125mg po BID Sitter: Defer to primary Medical: Per primary Disposition: At ths time the patient does not meet criteria for psychiatric inpatient treatment. Will continue to monitor the patient and follow up with case technician. Will follow. Thank you for this consult. Case staffed with Dr. Marquez Mental Status Exam - Vital signs Last Vital Signs Temp 98.1 F 07/25/20 08:21 Pulse 83 07/25/20 08:21 Resp 18 07/25/20 08:21 BP 104/59 07/25/20 08:21 Pulse Ox 97 07/25/20 08:21
[2020-07-25] MEDS: SERTRALINE 25 MG TAB PO SCH (10:21)
[2020-07-25] MEDS: DIVALPROEX DR 125 MG TAB PO SCH ×2 (10:21→22:28)
[2020-07-25] MEDS: traZODone 50 MG TAB PO SCH (22:28)
[2020-07-26] MEDS: SERTRALINE 25 MG TAB PO SCH (10:49)
[2020-07-26] MEDS: DIVALPROEX DR 125 MG TAB PO SCH ×2 (10:49→23:20)
[2020-07-26] MEDS: traZODone 50 MG TAB PO SCH (23:20)
[2020-07-27 02:55] VITALS: BP 117/60
== END 2020-07-27 10:00 | disposition home or self-care (01) ==
LOC: ED 14:16 → EEVIPCON 14:16 → ED 07-27 10:00
DX: M54.5 Low back pain (principal); R45.851 Suicidal ideations; F32.9 Major depressive disorder, single episode, unspecified; F10.10 Alcohol abuse, uncomplicated; F17.200 Nicotine dependence, unspecified, uncomplicated; F12.90 Cannabis use, unspecified, uncomplicated; F14.90 Cocaine use, unspecified, uncomplicated; Z98.890 Other specified postprocedural states; Z20.828 Contact with and (suspected) exposure to other viral communicable diseases
CPT/HCPCS: 36415; 72131; 74176; 80053; 80307; 81001; 82550; 83690; 83735; 85025; 96372; 99285; J1885; U0003; 80320; G0480

== ENCOUNTER 2021-04-20 13:02 | Emergency (ER) | payer SELFPAY ==
[2021-04-20 15:59] LABS: Basophils # (Auto) 0.1 K/mm3 (0.0-0.1); Eosinophils # (Auto) 0.1 K/mm3 (0.0-0.4); Eosinophils % (Auto) 1.3 % (0.0-4.3); Hematocrit 37.3 % (35.5-45.6); Hemoglobin 12.2 gm/dl (11.8-15.2); Lymphocytes # (Auto) 1.1 K/mm3 (1.2-5.4); Lymphocytes % (Auto) 18.3 % (13.4-35.0); Mean Corpuscular HGB Conc 33 % (32-34); Mean Corpuscular Volume 98 fl (84-94); Monocytes # (Auto) 0.6 K/mm3 (0.0-0.8); Monocytes % (Auto) 9.2 % (0.0-7.3); Platelet Count 290 K/mm3 (140-440); Red Blood Count 3.79 M/mm3 (3.65-5.03); Red Cell Distribution Width 14.8 % (13.2-15.2)
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
[2021-04-20 16:19] LABS: Amphetamine Screen,Urine PRESUMPTIVE NEGATIVE; Benzodiazepines Screen,Urine PRESUMPTIVE NEGATIVE; Cannabinoid Screen,Urine PRESUMPTIVE NEGATIVE; Cocaine Screen,Urine PRESUMPTIVE NEGATIVE; Methadone Screen,Urine PRESUMPTIVE NEGATIVE; Opiate Screen,Urine PRESUMPTIVE NEGATIVE
[2021-04-20 16:20] LABS: Bilirubin,Urine NEG (Negative); Blood,Urine NEG (Negative); Color,Urine Yellow (Yellow); Mucus,Urine FEW /HPF; Protein,Urine <15 mg/dL mg/dL (Negative); Urobilinogen,Urine < 2.0 mg/dL (<2.0); WBC,Urine < 1.0 /HPF (0.0-6.0)
[2021-04-20 16:22] LABS: Alanine Aminotransferase 13 units/L (7-56); Albumin 4.3 g/dL (3.9-5); Blood Urea Nitrogen 8 mg/dL (9-20); Calcium 9.1 mg/dL (8.4-10.2); Hemolysis Index 4
[2021-04-20 16:23] LABS: BUN/Creatinine Ratio 16
[2021-04-21] MEDS ORDERED: LORazepam 2 MG/ML VIAL IM PRN (11:09)
[2021-04-21] MEDS ORDERED: ACETAMINOPHEN 325 MG TAB PO PRN (11:09)
[2021-04-21] MEDS ORDERED: IBUPROFEN 400 MG TAB PO PRN (11:09)
[2021-04-21] MEDS ORDERED: ONDANSETRON 4 MG ODT TAB PO PRN (11:09)
[2021-04-21] MEDS ORDERED: diphenhydrAMINE 25 MG CAP PO PRN (11:09)
[2021-04-21] MEDS ORDERED: HALOPERIDOL LACTATE 5 MG/1 ML INJ IM PRN (11:09)
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
--- NOTE | 2021-04-21 11:10 | Event Note ---
Date: 04/21/21 The patient was evaluated in the emergency department for symptoms described in the history of present illness. He/she was evaluated in the context of the global COVID-19 pandemic, which necessitated consideration that the patient might be at risk for infection with the virus that causes COVID-19. Institutional protocols and algorithms that pertain to the evaluation of patients at risk for COVID-19 are in a state of rapid change based on information released by regulatory bodies including the CDC and federal and state organizations. These policies and algorithms were followed during the patient's care in the emergency department. Please note that these policies, procedures and recommendations changed on a rapid basis. Laboratory studies, vital signs, nursing documentation, ER documentation, and psychiatric documentation are reviewed and appreciated. Nursing team reports no acute events this morning or concerns. The patient is awake and ambulating and does not appear to be in any acute distress. The patient was deemed medically suitable for psychiatric disposition and placement during his initial ER evaluation. The patient continues to remain medically suitable for psychiatric placement and disposition. He is currently pending psychiatric placement. Vital Signs 04/20/21 04/20/21 04/20/21 13:11 15:26 15:32 Temperature 97.5 F L 98.0 F 98.0 F Pulse Rate 78 82 82 Respiratory 16 20 Rate Blood Pressure 138/97 Blood Pressure 141/87 138/97 [Right] O2 Sat by Pulse 100 100 100 Oximetry 04/20/21 04/20/21 04/20/21 15:36 15:42 20:25 Temperature 98.0 F 98.9 F Pulse Rate 82 84 Respiratory 20 20 18 Rate Blood Pressure Blood Pressure 138/97 108/62 [Right] O2 Sat by Pulse 100 100 97 Oximetry 04/21/21 04/21/21 04/21/21 02:45 04:01 07:59 Temperature 98.5 F 98.7 F Pulse Rate 82 88 Respiratory 18 20 Rate Blood Pressure Blood Pressure 128/81 127/79 [Right] O2 Sat by Pulse 99 99 98 Oximetry Lab Results 04/20/21 04/20/21 04/20/21 Range/Units 15:31 15:31 15:31 WBC 6.2 (4.5-11.0) K/mm3 RBC 3.79 (3.65-5.03) M/mm3 Hgb 12.2 (11.8-15.2) gm/dl Hct 37.3 (35.5-45.6) % MCV 98 H (84-94) fl MCH 32 (28-32) pg MCHC 33 (32-34) % RDW 14.8 (13.2-15.2) % Plt Count 290 (140-440) K/mm3 Lymph % (Auto) 18.3 (13.4-35.0) % Becker % (Auto) 9.2 H (0.0-7.3) % Eos % (Auto) 1.3 (0.0-4.3) % Baso % (Auto) 1.0 (0.0-1.8) % Lymph # (Auto) 1.1 L (1.2-5.4) K/mm3 Becker # (Auto) 0.6 (0.0-0.8) K/mm3 Eos # (Auto) 0.1 (0.0-0.4) K/mm3 Baso # (Auto) 0.1 (0.0-0.1) K/mm3 Seg Neutrophils % 70.2 H (40.0-70.0) % Seg Neutrophils # 4.4 (1.8-7.7) K/mm3 Sodium 136 L (137-145) mmol/L Potassium 4.6 (3.6-5.0) mmol/L Chloride 99.1 (98-107) mmol/L Carbon Dioxide 27 (22-30) mmol/L Anion Gap 15 mmol/L BUN 8 L (9-20) mg/dL Creatinine 0.5 L (0.8-1.3) mg/dL Estimated GFR > 60 ml/min BUN/Creatinine Ratio 16 % Glucose 102 H (75-100) mg/dL Calcium 9.1 (8.4-10.2) mg/dL Total Bilirubin 0.20 (0.1-1.2) mg/dL AST 18 (5-40) units/L ALT 13 (7-56) units/L Alkaline Phosphatase 149 H (35-129) units/L Total Protein 8.3 H (6.3-8.2) g/dL Albumin 4.3 (3.9-5) g/dL Albumin/Globulin Ratio 1.1 % Urine Color (Yellow) Urine Turbidity (Clear) Urine pH (5.0-7.0) Ur Specific [place] (1.003-1.030) Urine Protein (Negative) mg/dL Urine Glucose (UA) (Negative) mg/dL Urine Ketones (Negative) mg/dL Urine Blood (Negative) Urine Nitrite (Negative) Urine Bilirubin (Negative) Urine Urobilinogen (<2.0) mg/dL Ur Leukocyte Esterase (Negative) Urine WBC (Auto) (0.0-6.0) /HPF Urine RBC (Auto) (0.0-6.0) /HPF Urine Mucus /HPF Salicylates < 0.3 L (2.8-20.0) mg/dL Urine Opiates Screen Urine Methadone Screen Acetaminophen (10.0-30.0) ug/mL Ur Barbiturates Screen Ur Phencyclidine Scrn Ur Amphetamines Screen U Benzodiazepines Scrn Urine Cocaine Screen U Marijuana (THC) Screen Drugs of Abuse Note Plasma/Serum Alcohol (0-0.07) % 04/20/21 04/20/21 04/20/21 Range/Units 15:31 15:31 15:41 WBC (4.5-11.0) K/mm3 RBC (3.65-5.03) M/mm3 Hgb (11.8-15.2) gm/dl Hct (35.5-45.6) % MCV (84-94) fl MCH (28-32) pg MCHC (32-34) % RDW (13.2-15.2) % Plt Count (140-440) K/mm3 Lymph % (Auto) (13.4-35.0) % Becker % (Auto) (0.0-7.3) % Eos % (Auto) (0.0-4.3) % Baso % (Auto) (0.0-1.8) % Lymph # (Auto) (1.2-5.4) K/mm3 Becker # (Auto) (0.0-0.8) K/mm3 Eos # (Auto) (0.0-0.4) K/mm3 Baso # (Auto) (0.0-0.1) K/mm3 Seg Neutrophils % (40.0-70.0) % Seg Neutrophils # (1.8-7.7) K/mm3 Sodium (137-145) mmol/L Potassium (3.6-5.0) mmol/L Chloride (98-107) mmol/L Carbon Dioxide (22-30) mmol/L Anion Gap mmol/L BUN (9-20) mg/dL Creatinine (0.8-1.3) mg/dL Estimated GFR ml/min BUN/Creatinine Ratio % Glucose (75-100) mg/dL Calcium (8.4-10.2) mg/dL Total Bilirubin (0.1-1.2) mg/dL AST (5-40) units/L ALT (7-56) units/L Alkaline Phosphatase (35-129) units/L Total Protein (6.3-8.2) g/dL Albumin (3.9-5) g/dL Albumin/Globulin Ratio % Urine Color Yellow (Yellow) Urine Turbidity Clear (Clear) Urine pH 8.0 H (5.0-7.0) Ur Specific [place] 1.010 (1.003-1.030) Urine Protein <15 mg/dl (Negative) mg/dL Urine Glucose (UA) Neg (Negative) mg/dL Urine Ketones Neg (Negative) mg/dL Urine Blood Neg (Negative) Urine Nitrite Neg (Negative) Urine Bilirubin Neg (Negative) Urine Urobilinogen < 2.0 (<2.0) mg/dL Ur Leukocyte Esterase Neg (Negative) Urine WBC (Auto) < 1.0 (0.0-6.0) /HPF Urine RBC (Auto) 1.0 (0.0-6.0) /HPF Urine Mucus Few /HPF Salicylates (2.8-20.0) mg/dL Urine Opiates Screen Urine Methadone Screen Acetaminophen 5.0 L (10.0-30.0) ug/mL Ur Barbiturates Screen Ur Phencyclidine Scrn Ur Amphetamines Screen U Benzodiazepines Scrn Urine Cocaine Screen U Marijuana (THC) Screen Drugs of Abuse Note Plasma/Serum Alcohol < 0.01 (0-0.07) % 04/20/21 Range/Units 15:41 WBC (4.5-11.0) K/mm3 RBC (3.65-5.03) M/mm3 Hgb (11.8-15.2) gm/dl Hct (35.5-45.6) % MCV (84-94) fl MCH (28-32) pg MCHC (32-34) % RDW (13.2-15.2) % Plt Count (140-440) K/mm3 Lymph % (Auto) (13.4-35.0) % Becker % (Auto) (0.0-7.3) % Eos % (Auto) (0.0-4.3) % Baso % (Auto) (0.0-1.8) % Lymph # (Auto) (1.2-5.4) K/mm3 Becker # (Auto) (0.0-0.8) K/mm3 Eos # (Auto) (0.0-0.4) K/mm3 Baso # (Auto) (0.0-0.1) K/mm3 Seg Neutrophils % (40.0-70.0) % Seg Neutrophils # (1.8-7.7) K/mm3 Sodium (137-145) mmol/L Potassium (3.6-5.0) mmol/L Chloride (98-107) mmol/L Carbon Dioxide (22-30) mmol/L Anion Gap mmol/L BUN (9-20) mg/dL Creatinine (0.8-1.3) mg/dL Estimated GFR ml/min BUN/Creatinine Ratio % Glucose (75-100) mg/dL Calcium (8.4-10.2) mg/dL Total Bilirubin (0.1-1.2) mg/dL AST (5-40) units/L ALT (7-56) units/L Alkaline Phosphatase (35-129) units/L Total Protein (6.3-8.2) g/dL Albumin (3.9-5) g/dL Albumin/Globulin Ratio % Urine Color (Yellow) Urine Turbidity (Clear) Urine pH (5.0-7.0) Ur Specific [place] (1.003-1.030) Urine Protein (Negative) mg/dL Urine Glucose (UA) (Negative) mg/dL Urine Ketones (Negative) mg/dL Urine Blood (Negative) Urine Nitrite (Negative) Urine Bilirubin (Negative) Urine Urobilinogen (<2.0) mg/dL Ur Leukocyte Esterase (Negative) Urine WBC (Auto) (0.0-6.0) /HPF Urine RBC (Auto) (0.0-6.0) /HPF Urine Mucus /HPF Salicylates (2.8-20.0) mg/dL Urine Opiates Screen Presumptive negative Urine Methadone Screen Presumptive negative Acetaminophen (10.0-30.0) ug/mL Ur Barbiturates Screen Presumptive negative Ur Phencyclidine Scrn Presumptive negative Ur Amphetamines Screen Presumptive negative U Benzodiazepines Scrn Presumptive negative Urine Cocaine Screen Presumptive negative U Marijuana (THC) Screen Presumptive negative Drugs of Abuse Note Disclamer Plasma/Serum Alcohol (0-0.07) %
[2021-04-21] MEDS ORDERED: PARoxetine 20 MG TAB PO SCH (12:00)
[2021-04-21] MEDS ORDERED: traZODone 50 MG TAB PO SCH (22:00)
[2021-04-21 22:33] VITALS: BP 131/86
== END 2021-04-22 03:06 ==
LOC: ED 13:02
DX: M79.661 Pain in right lower leg (principal); R45.851 Suicidal ideations; F17.200 Nicotine dependence, unspecified, uncomplicated; Z20.822 Contact with and (suspected) exposure to COVID-19
CPT/HCPCS: 36415; 80053; 80307; 81001; 85025; 99285; U0003; 80320; G0480